=== PATIENT | male | born 1980 | race Caucasian/White ===

== ENCOUNTER 2024-05-21 14:48 | Emergency (ER) | payer SELFPAY ==
[~2024-05-21] VITALS: Ht 185.4 cm; Wt 82.0 kg
[2024-05-21 14:54] VITALS: BP 144/90; PULSE 63; RESP 18; TEMP 36.9; O2SAT 98
== END 2024-05-21 15:25 | disposition home or self-care (01) ==
LOC: ER 14:48
DX: F10.129 Alcohol abuse with intoxication, unspecified (principal); Y90.9 Presence of alcohol in blood, level not specified
CPT/HCPCS: 99283